=== PATIENT | female | born 1930 | race Caucasian/White ===

== ENCOUNTER 2017-06-21 15:55 | Inpatient (IN) | payer MEDICARE, OTHER ==
[~2017-06-21] VITALS: Ht 162.6 cm; Wt 73.5 kg
--- NOTE | ~2017-06-21 | CR107 ---
[facility] A Service of [facility] & [facility] RADIOLOGY TEXT RESULTS PATIENT: ALISE ROMAN LOCATION: [facility] 448-01 : 31 UNIT #: [id number] AGE: [address]: Annamaria Talbert MD SEX: F ORDER DR: [id number] [facility] [address] [place], [place] [address] [id number] I MR#: [id number] Acc #: [id number] NAME: ALISE ROMAN. : 1930 SEX: F STUDY DATE/TIME: 06/21/2017 17:31 UNIT: [facility] ROOM: [facility] STUDY DESCRIPTION: CR Femur 2 Views Rt Attending Physician: Kassie Enriquez M.D. Ordering Physician: Leonardo Escobedo M.D. Primary Care Physician: Hero Arnold M.D. MEDICAL IMAGING REPORT This report is preliminary unless electronic signature is present EXAM Right femur AP and lateral HISTORY Leg pain after fall today. FINDINGS AP and lateral views of the right femur demonstrate satisfactory bone alignment. No fracture or dislocation. Avhv-le-qhanrfco degenerative changes in the knee. Generalized demineralization. Arterial calcifications. IMPRESSION No acute findings. Dictated by... Rony Blackwood M.D. THIS IS AN ELECTRONICALLY VERIFIED REPORT Rony Blackwood M.D. at 06/22/2017 11:22 PM ELMA/bao TD: 06/21/2017 23:49 JOB #: [id number] MEDICAL IMAGING REPORT Page 1 of 1 COPY
--- NOTE | ~2017-06-21 | CR21 ---
[facility] A Service of [facility] & [facility] RADIOLOGY TEXT RESULTS PATIENT: ALISE ROMAN LOCATION: [facility] 448-01 : 31 UNIT #: [id number] AGE: [address]: Annamaria Talbert MD SEX: F ORDER DR: [id number] [facility] [address] [place], [place] [address] [id number] I MR#: [id number] Acc #: [id number] NAME: ALISE ROMAN. : 1930 SEX: F STUDY DATE/TIME: 06/21/2017 17:09 UNIT: [facility] ROOM: [facility] STUDY DESCRIPTION: CR Ankle Min 3 Views Rt Attending Physician: Kassie Enriquez M.D. Ordering Physician: Leonardo Escobedo M.D. Primary Care Physician: Hero Arnold M.D. MEDICAL IMAGING REPORT This report is preliminary unless electronic signature is present EXAM Right ankle, 3 views. HISTORY Ankle pain after fall today. FINDINGS Three views of the right ankle demonstrate oblique fracture of the distal fibular shaft approximately 4 cm proximal to the tip of the lateral malleolus with 4 mm separation of the fracture fragments and no significant fracture angulation. There is a transverse fracture through the base of the medial malleolus with 4 mm separation of the fracture fragment. Soft tissue swelling about the ankle, greater over the lateral malleolus. Generalized demineralization. No dislocation. Small posterior calcaneal spur. Dictated by... Rony Blackwood M.D. THIS IS AN ELECTRONICALLY VERIFIED REPORT Rony Blackwood M.D. at 06/22/2017 11:22 PM ELMA/lg TD: 06/22/2017 00:27 JOB #: [id number] MEDICAL IMAGING REPORT Page 1 of 1 COPY
--- NOTE | ~2017-06-21 | CR253 ---
[facility] A Service of [facility] & [facility] & [facility] RADIOLOGY TEXT RESULTS PATIENT: ALISE ROMAN LOCATION: [facility] 448-01 : 31 UNIT #: [id number] AGE: [address]: Annamaria Talbert MD SEX: F ORDER DR: [id number] [facility] [address] [place], [place] [address] [id number] MR#: [id number] Acc #: [id number] NAME: ALISE ROMAN. : 1930 SEX: F STUDY DATE/TIME: 06/21/2017 17:19 UNIT: [facility] ROOM: [facility] STUDY DESCRIPTION: CR Tibia and Fibula 2 Views Rt Attending Physician: Kassie Enriquez M.D. Ordering Physician: Leonardo Escobedo M.D. Primary Care Physician: Hero Arnold M.D. MEDICAL IMAGING REPORT This report is preliminary unless electronic signature is present EXAM Right tibia-fibula AP and lateral HISTORY Leg pain after fall today. FINDINGS AP and lateral views of the right tibia and fibula demonstrate oblique fracture through the posterior malleolus with 3 mm separation of the fracture fragment. Transverse fracture through the base of the medial malleolus with 4 mm separation of the fracture fragment. There is also an oblique fracture through the distal fibular shaft centered approximately 4 cm from the tip the lateral malleolus with nearly 3-4 mm separation of the fracture fragments and no significant fracture angulation. Soft tissue swelling about the ankle. Generalized demineralization. No additional fracture. Dictated by... Rony Blackwood M.D. THIS IS AN ELECTRONICALLY VERIFIED REPORT Rony Blackwood M.D. at 06/22/2017 11:22 PM ELMA/bao TD: 06/22/2017 00:32 JOB #: [id number] MEDICAL IMAGING REPORT Page 1 of 1 COPY
--- NOTE | ~2017-06-21 | EKG ---
PATIENT: ALISE ROMAN UNIT #: [id number] Ventricular Rate: 81 BPM Atrial Rate: 82 BPM QRS Duration: 78 ms Q-T Interval: 422 ms QTC Calculation(Bezet): 490 ms Calculated R Modena: 0 degrees Calculated T Modena: 48 degrees Diagnosis Line: Normal sinus rhythm Diagnosis Line: Minimal voltage criteria for LVH, may be normal Diagnosis Line: variant Diagnosis Line: Prolonged QT Diagnosis Line: Abnormal ECG Diagnosis Line: When compared with ECG of 03-JUN-2016 18:47, Diagnosis Line: ST depression in in lateral leads is new Diagnosis Line: Confirmed by KARLA KUMAR MD ([id number]) on 06/22/2017 Diagnosis Line: 6:48:48 PM INTERPRETING MD: STACY TREVIZO
--- NOTE | ~2017-06-21 | DS ---
Unit #: [id number] #: [id number] Patient: ALISE ROMAN [id number] [address] [address] [id number] I MR#: [id number] NAME: ALISE ROMAN. ROOM: 448 Age: Sex: F Admission Date: 06/21/2017 : 1930 Discharge Date: 06/24/2017 Attending Physician: Annamaria Talbert M.D. Primary Care Physician: Hero Arnold M.D. DISCHARGE SUMMARY DISCHARGE DIAGNOSES 1. Fall with right trimalleolar fracture, nondisplaced, status post right nonweightbearing short leg fiberglass cast. 2. Coronary artery disease with stable angina. 3. Diabetes mellitus type 2, uncontrolled. 4. Hypertension. 5. History of asthma. 6. History of previous stroke with minimal residual. 7. Hyperlipidemia. 8. Mild to moderate (1) regurgitation. 9. Hypertensive crisis on admission. CONSULTANTS Dr. Mane and Dr. Little. PROCEDURE Patient had obligation of the right nonweightbearing short leg fiberglass cast on 06/22/2018. LABORATORY DATA Glucose 486, creatinine 0.5. WBC 9.3, hemoglobin 12.2, platelet 168. ALLERGIES Sulfa, amylase, lipase, protease, alprazolam, cimetidine, isradipine. DISCHARGE MEDICATIONS 1. Albuterol two puffs inhalation 4 times daily. 2. Prednisone 2.5 p.o. b.i.d. 3. Cymbalta 60 p.o. daily. 4. Vistaril 50 p.o. b.i.d. 5. Lopressor 25 p.o. b.i.d. 6. Bisacodyl 10 mg p.r.n. constipation. 7. MiraLAX 17 g p.o. daily. 8. Lipitor 40 daily. 9. Lisinopril 20 daily. 10. Aspirin 81 daily. 11. Percocet 5 mg 1-2 tablets q.4 p.r.n. pain. 12. Plavix 75 daily. 13. Amaryl 4 mg daily. 14. Calcium carbonate 500 p.o. daily p.r.n. HOSPITAL COURSE 86-year-old lady admitted because of fall and trimalleolar fracture. Follow the trimalleolar fracture. Patient was seen by orthopedics. Unit #: [id number] #: [id number] Patient: ALISE ROMAN Patient had application of a right nonweightbearing short leg fiberglass cast, currently tolerating this. Patient will be discharged to rehab. Diabetes mellitus type 2, well controlled, noninsulin dependent. Continue the Amaryl. Hypertension with crisis on admission. Adjusted medicines. Currently blood pressure is stable. Continue current medication. Coronary artery disease. Continue with Plavix. Patient is seen by cardiology. She has stable angina. Patient will be discharge to rehab. Continue with the weightbearing status as per Dr. Mane. Dictated by... Rhea Gay/vikas TD: 06/24/2017 15:49 JOB #: [id number] DISCHARGE SUMMARY Page 1 of 1 X Annamaria Talbert MD X DISCHARGE SUMMARY
--- NOTE | ~2017-06-21 | HP ---
Unit #: [id number] #: [id number] Patient: ALISE ROMAN [id number] [address] [place], [place] [address] [id number] I MR#: [id number] NAME: ALISE ROMAN. ROOM: 29837 Age: 86 Sex: F Admission Date: 06/21/2017 : 1930 Attending Physician: Kassie Enriquez M.D. Primary Care Physician: Hero Arnold M.D. HISTORY AND PHYSICAL CHIEF COMPLAINT Fall with right trimalleolar fracture. HISTORY OF PRESENT ILLNESS This pleasant 86-year-old female with CAD, hypertension, and AODM, is admitted for an ankle fracture. Today, the patient slipped in her bathroom and fell with right leg pain. She was able to scoot to the phone and call family. She was sent to this emergency department with an initial blood pressure of 200/100 which has improved after pain medicines. Multiple x-rays were performed, and patient was found to have a right trimalleolar ankle fracture. She lives alone and would not be able to care for herself waiting for an orthopedic surgical evaluation as an outpatient. She therefore is admitted and will likely need surgery. Patient does have heart disease followed by Dr. Little. She has undergone multivessel PCI and stents with an ejection fraction of about 45%. During her last cardiac catheterization in 2013, she was noted to have 90% stent stenosis mid LAD caught in stent fdc. The family at that time did not want further intervention. Patient denies recent angina. She is however, quite sedentary. PAST MEDICAL HISTORY 1. Coronary artery disease with previous MIs. Last ejection fraction 45%. Status post multivessel PCI and stents. 2. Essential hypertension. 3. Hyperlipidemia. 4. Adult-onset diabetes mellitus. 5. Asthma. 6. Fibromyalgia. 7. Degenerative joint disease. 8. Esophagitis with esophageal stricture requiring dilation. 9. Anxiety. 10. Cholecystectomy. 11. ERCP. 12. Bilateral cataract extraction. 13. Right wrist surgery. ALLERGIES Sulfa, Xanax, Tagamet, isradipine, and Pancreas. HOME MEDICATIONS 1. Aspirin 81 mg daily. Unit #: [id number] #: [id number] Patient: ALISE ROMAN 2. Prednisone 2.5 mg b.i.d. 3. Amaryl 2 mg q.a.m. 4. Plavix 75 mg q.a.m. 5. Metoprolol 25 mg b.i.d. 6. Lisinopril 20 mg at bedtime. 7. Hydrocodone 10/325 at 5 tablets daily as needed. 8. Atarax 50 mg b.i.d. 9. Cymbalta 60 mg daily. 10. Lipitor 40 mg at bedtime. 11. Nitroglycerin p.r.n. 12. ProAir q.i.d. 13. Refresh eyedrops 1 drop O.U. at bedtime. FAMILY HISTORY Noncontributory given patient's age. SOCIAL HISTORY Patient lives alone. She is a lifelong nonsmoker and does not drink alcohol. REVIEW OF SYSTEMS Notable for heart disease, asthma, hypertension, fall, right ankle fracture, diabetes, above-mentioned surgeries, and chronic left knee pain. All other systems were reviewed and otherwise negative. PHYSICAL EXAMINATION: GENERAL: A pleasant 86-year-old, mildly obese female currently in no acute distress. VITAL SIGNS: Temperature 98.5, pulse 64, respirations 16, blood pressure 200/100 which has improved to a blood pressure of 124/62, and O2 saturation is 93% on room air. HEENT: Eyes PERRLA. Extraocular muscles are intact. Pharynx is benign. NECK: Supple without adenopathy or thyromegaly. CHEST: Clear. CARDIAC: Normal S1 and S2 without S3, S4, or murmur. ABDOMEN: Bowel sounds are present. No hepatosplenomegaly, tenderness, or masses. EXTREMITIES: Patient has a splint and Tulio wrap right lower extremity. Left leg without edema, good pedal pulse, and no ulcer on the foot. NEUROLOGIC: Patient is awake, alert, and oriented. Cranial nerves are intact. Equal strength throughout. DIAGNOSTIC STUDIES ADMISSION LABORATORY: Hematocrit is 40.3 with normal white count and platelet count. SMA-12 with glucose of 179. IMAGING: X-rays of the LS spine, right femur, and right hip show no acute disease. X-ray of the right ankle and foot show a trimalleolar right ankle fracture. Head CT I believe shows stable findings and small vessel ischemia disease but will await formal dictation as it is difficult for me to completely understand what the radiologist is dictating. However, it is of note, there was no hemorrhage noted. ASSESSMENT 1. Fall with right trimalleolar fracture. 2. Coronary artery disease with mild left ventricular dysfunction. 3. Adult-onset diabetes mellitus. 4. Essential hypertension. Unit #: [id number] #: [id number] Patient: ALISE ROMAN 5. Stable asthma. PLANS 1. Obtain EKG, urinalysis, and chest x-ray. 2. Hold Amaryl, treat with sliding scale insulin, and add dextrose to IV fluids while n.p.o. 3. Continue Lopressor even if n.p.o. 4. Orthopedic surgeon has been consulted. 5. Pain control. 6. Cardiology to also help clear in the morning. 7. Hold aspirin and Plavix for upcoming possible surgery. 1. Dictated by Kassie Enriquez M.D. AML/am TD: 06/21/2017 21:53 JOB #: [id number] HISTORY AND PHYSICAL Page 1 of 1 X Kassie Enriquez MD X HISTORY AND PHYSICAL
--- NOTE | ~2017-06-21 | CO ---
Unit #: [id number] #: [id number] Patient: ALISE ROMAN [id number] [address] [place], [place] [address] [id number] I MR#: [id number] NAME: ALISE ROMAN. ROOM: 448 Age: 86 Sex: F Admission Date: 06/21/2017 : 1930 Attending Physician: Annamaria Talbert M.D. Primary Care Physician: Hero Arnold M.D. Consultation Date: 06/22/2017 CONSULTATION REPORT REASON FOR CONSULT Right trimalleolar ankle fracture. HISTORY OF PRESENT ILLNESS This is an 86-year-old female, who reported to the emergency department for closed right trimalleolar ankle fracture. The patient was at home when she slipped in the bathroom rolling her ankle. The patient was unable to bear weight directly after the patient was at home alone, she states no other injuries occurred. She reported to the emergency department with a blood pressure of 200/100, which has improved after pain medication. She is on chronic pain medication for previous back injury. The patient does have heart disease, followed by Dr. Little. She has undergone multivessel PCI and stents with ejection fraction of 45%. Last cardiac catheterization was in 2013. She does not live with any family and was at home alone. The patient denies any recent chest pain, shortness of air. No other orthopedic complaints at this time. PAST MEDICAL HISTORY 1. Coronary artery disease. 2. Essential hypertension. 3. Hyperlipidemia. 4. Adult onset diabetes mellitus. 5. Asthma. 6. Fibromyalgia. 7. Degenerative joint disease. 8. Anxiety. 9. Esophagitis. 10. Cholecystectomy. 11. ERCP. 12. Bilateral cataract extraction. 13. History of right wrist surgery. ALLERGIES Sulfa, Xanax, Tagamet, isradipine. MEDICATIONS Aspirin 81 mg, prednisone 2.5 mg b.i.d., Amaryl 2 mg q.a.m., Plavix 75 mg, lisinopril 20 mg, hydrocodone 10/325, Atarax 50 mg, Cymbalta 60 mg, Lipitor 40 mg, nitroglycerin p.r.n., ProAir q.i.d., Refresh eyedrops one drop at bedtime. FAMILY HISTORY Noncontributory. Unit #: [id number] #: [id number] Patient: ALISE ROMAN SOCIAL HISTORY The patient lives alone. Denies any tobacco or alcohol use. REVIEW OF SYSTEMS Notable for heart disease, asthma hypertension, fall, right ankle fracture, diabetes, above-mentioned surgeries, and chronic left knee pain and back pain. PHYSICAL EXAMINATION GENERAL: Pleasant 86-year-old female, mildly obese, no acute distress. VITAL SIGNS: Afebrile. Vital signs stable. HEENT: Eyes, PERRLA. NECK: Supple. No adenopathy or thyromegaly. CHEST: Clear. Regular rate and rhythm. CARDIAC: Normal S1, S2. ABDOMEN: Soft, nontender, nondistended. EXTREMITIES: Bilateral pedal pulses intact. Sensation intact to light touch in all distal digits. Diffuse edema to the distal tibia, ankle, and forefoot. Ecchymosis to the lateral ankle. Tenderness to palpation over the anterior ankle and medial and lateral distal tibia. The patient is unable to perform range of motion of the ankle joint. The patient is able to wiggle toes. Brisk cap refill intact to all digits right foot. DIAGNOSTIC STUDIES IMAGING STUDIES: Three view x-rays right ankle show a nondisplaced trimalleolar fracture, transverse medial malleolus fracture, oblique fracture of the fibula above the syndesmosis nondisplaced. No posterior malleolar component. ASSESSMENT An 86-year-old female with trimalleolar fracture right ankle, nondisplaced, closed. PLAN The patient will be removed from posterior splint and placed into a short-leg cast. The patient to remain nonweightbearing right lower extremity. The patient will require rehab placement for approximately 6 weeks. The patient will follow up with Dr. Mane in 1 week for removal of the cast and re-evaluation of right ankle three view x-rays. The patient okay to continue aspirin and Plavix. Pain medication, Percocet 5/325 p.o. q.4 to 6 hours p.r.n. pain. Dictated byLinda Mane M.D. JANET/octavio TD: 06/22/2017 18:58 JOB #: [id number] Unit #: [id number] #: [id number] Patient: ALISE ROMAN CONSULTATION REPORT Page 1 of 1 X Jaqueline Mane MD CONSULTATION REPORT
--- NOTE | ~2017-06-21 | CR127 ---
[facility] A Service of [facility] & [facility] RADIOLOGY TEXT RESULTS PATIENT: ALISE ROMAN LOCATION: [facility] 448-01 : 31 UNIT #: [id number] AGE: [address]: Annamaria Talbert MD SEX: F ORDER DR: [id number] [facility] [address] [place], [place] [address] [id number] I MR#: [id number] Acc #: [id number] NAME: ALISE ROMAN. : 1930 SEX: F STUDY DATE/TIME: 06/21/2017 17:11 UNIT: [facility] ROOM: [facility] STUDY DESCRIPTION: CR Foot Complete Min 3 View Rt Attending Physician: Kassie Enriquez M.D. Ordering Physician: Leonardo Escobedo M.D. Primary Care Physician: Hero Arnold M.D. MEDICAL IMAGING REPORT This report is preliminary unless electronic signature is present EXAM Right foot, 3 views. HISTORY Foot pain after fall today. FINDINGS Three views of the right foot demonstrate satisfactory bone alignment. No foot fracture. Generalized demineralization. Mild degenerative changes at the first MTP joint. Small posterior calcaneal spur. Transverse fracture through the base of the medial malleolus and oblique fracture the distal fibular shaft correspond to findings on ankle x-ray reported separately. IMPRESSION 1. No foot fracture. 2. Transverse fracture through the base of the medial malleolus and oblique fracture of the distal fibular shaft correspond to findings on ankle x-ray reported separately. Dictated by... Rony Blackwood M.D. THIS IS AN ELECTRONICALLY VERIFIED REPORT Rony Blackwood M.D. at 06/22/2017 11:22 PM ELMA/lg TD: 06/22/2017 00:29 JOB #: [id number] MEDICAL IMAGING REPORT Page 1 of 1 COPY
--- NOTE | ~2017-06-21 | CR181 ---
[facility] A Service of [facility] & [facility] RADIOLOGY TEXT RESULTS PATIENT: ALISE ROMAN LOCATION: [facility] 448-01 : 31 UNIT #: [id number] AGE: [address]: Annamaria Talbert MD SEX: F ORDER DR: [id number] [facility] [address] [place], [place] [address] [id number] I MR#: [id number] Acc #: [id number] NAME: ALISE ROMAN. : 1930 SEX: F STUDY DATE/TIME: 06/21/2017 17:40 UNIT: [facility] ROOM: [facility] STUDY DESCRIPTION: CR Lumbar Spine 2 or 3 Views Attending Physician: Kassie Enriquez M.D. Ordering Physician: Ed Alec Escobedo M.D. Primary Care Physician: Hero Arnold M.D. MEDICAL IMAGING REPORT This report is preliminary unless electronic signature is present EXAM Lumbar spine 3 views HISTORY Back pain after fall today. FINDINGS 3 views lumbar spine demonstrate minimal left upper lumbar curve. Five lumbar-type vertebra. No fracture or subluxation. No abnormal sclerosis. Cqii-cp-bxrrtmqc degenerative changes primarily in the lower lumbar facet joints. IMPRESSION No acute findings. Dictated by... Rony Blackwood M.D. THIS IS AN ELECTRONICALLY VERIFIED REPORT Rony Blackwood M.D. at 06/22/2017 11:22 PM ELMA/bao TD: 06/21/2017 23:50 JOB #: [id number] MEDICAL IMAGING REPORT Page 1 of 1 COPY
--- NOTE | ~2017-06-21 | CO ---
Unit #: [id number] #: [id number] Patient: ALISE ROMAN [id number] [address] [place], [place] [address] [id number] I MR#: [id number] NAME: ALISE ROMAN. ROOM: 448 Age: 86 Sex: F Admission Date: 06/21/2017 : 1930 Attending Physician: Annamaria Talbert M.D. Primary Care Physician: Hero Arnold M.D. Consultation Date: 06/21/2017 CONSULTATION REPORT REASON FOR CONSULTATION Cardiac management, status post fall with a right trimalleolar fracture. HISTORY OF PRESENT ILLNESS This is an 86-year-old white female who is known to Dr. Little, who sees Dr. Little in the office. She was last seen this past May. She has a history of having previous myocardial infarction. Last catheterization in 2013. The patient had a PCI and stent to the mid LAD times two. She is maintained on Plavix and aspirin. She has hypertension, hyperlipidemia, previous stroke with minimal residual, chronic obstructive pulmonary disease, asthma and diabetic. The patient, as mentioned, was brought to the emergency room after she experienced a fall. According to the patient, she went to the bathroom and does use a walker, but there was water on the floor and she slipped and fell. She twisted her right ankle. She lives alone. She laid on the floor for some amount of time and eventually could crawl into the next room and called her daughter. They called EMS and she was brought to the emergency room. She complained of pain in her right ankle on the right side of her leg. Multiple x-rays were performed and the patient was found to have a right trimalleolar ankle fracture. X-rays of her lumbar spine, right hip and CT of the head were stable. The patient's blood pressure was fairly high on admission, 200/100. She was afebrile. Chest x-ray did not show anything acute. The patient was admitted and orthopedic surgeon consulted. Cardiology was consulted since she has a stent and is on Plavix and aspirin for possible clearance for any needed surgical intervention. On interview with the patient she denies any chest pain, pain in her neck, bilateral jaws, shoulders, arms or elbows. She denies any palpitations. She denied any dizziness, presyncope or syncope that could have precipitated this fall. She said she had been doing fairly well since she saw Dr. Little last. PAST MEDICAL HISTORY 1. Coronary artery disease. 2. Previous myocardial infarction in 2012. Status post PCI and bare metal stent to the mid LAD and drug-eluting stent to the PLV branch of the RCA. 3. Last cardiac catheterization was in 2013, status post PCI and stent to the mid LAD times two. The findings were 30% distal left main stenosis, LAD large caliber with intracoronary stent widely patent, in the mid LAD the was a 90% stenosis at the origin of the diagonal branch caught in stent senior care, mid LAD in the first diagonal branch with patent stents, circumflex very small and a nondominant vessel with a small marginal branch 80%-90% stenosis at its origin, RCA widely patent stent in the posterolateral ventricular branch. 4. In 2013 two-dimensional echo with left ventricular ejection fraction Unit #: [id number] #: [id number] Patient: ALISE ROMAN M of 50%, mild left ventricular hypertrophy, mild mitral regurgitation, mild to moderate aortic regurgitation. 5. Hypertension. 6. Hyperlipidemia. 7. Previous stroke. 8. Chronic obstructive pulmonary disease, asthma. 9. Diabetes mellitus type 2. 10. Nonsmoker. PAST SURGICAL HISTORY 1. Status post PCI and bare metal stent to the mid LAD and drug-eluting stent to the PLV branch of the RCA in 2012. 2. In 2013, status post PCI and stent to the mid LAD times 2. 3. Cholecystectomy. 4. Right wrist surgery. 5. Bilateral cataract surgery. 6. ERCP. SOCIAL HISTORY The patient lives in her own home alone. She does have family that lives nearby. She has been a lifelong nonsmoker. No alcohol or illicit drug use. She ambulates with a walker and has a cane. FAMILY HISTORY Her brother had a myocardial infarction at the age of 70. ALLERGIES Sulfonamides, alprazolam, cimetidine, Isradipine. HOME MEDICATIONS 1. Amaryl 2 mg p.o. daily in the morning. 2. Aspirin 81 mg p.o. daily. 3. Metoprolol 25 mg b.i.d. 4. Plavix 75 mg p.o. daily. 5. Lisinopril 20 mg p.o. daily at bedtime. 6. Hydroxyzine Vistaril 50 mg p.o. b.i.d. 7. Cymbalta 60 mg p.o. daily. 8. Lipitor 40 mg p.o. at bedtime. 9. Gaviscon Extra Strength one tablet p.r.n. 10. Hydrocodone acetaminophen 10/325 mg 1 tablet q.4 h. p.r.n. pain. 11. Prednisone 2.5 mg p.o. b.i.d. 12. ProAir 2 puffs q.i.d. REVIEW OF SYSTEMS See details in history of present illness. PHYSICAL EXAMINATION GENERAL: Ms. Roman is an 86-year-old white female in no acute respiratory distress. She is awake, alert and oriented. She answers most questions appropriately. VITALS: Currently, blood pressure 149/50, heart rate 74, respiratory rate 18, temperature 98.1, O2 saturations 98% on room air. NECK: Trachea midline. No thyromegaly or lymphadenopathy. Normal carotid upstrokes. No jugular venous distension. LUNGS: Diminished, otherwise clear. HEART: S1 and S2. Systolic murmur over the aortic region, left sternal border. ABDOMEN: Soft and nontender. Positive bowel sounds present. Unit #: [id number] #: [id number] Patient: ALISE ROMAN EXTREMITIES: Left foot pedal pulses are palpable. No pedal edema. On the right she has a cast with the toes exposed. They are warm to touch. Good capillary refill. DIAGNOSTIC STUDIES IMAGING: Chest x-ray shows no active disease. X-ray of the lumbar spine nothing acute. X-ray of the right femur negative. X-ray of right hip negative. X-ray of the tibia/fibula negative. X-ray of the right foot shows a transverse fracture through the base of the medial malleolus and oblique fracture of the distal fibular shaft. X-ray of the right ankle, three views, show oblique fracture of the distal fibula to the tip of the lateral malleolus. Also transverse fracture to the base of the medial malleolus. LABORATORY: Glucose 219, BUN 26, creatinine 0.6, EGFR 83.1, sodium 137, potassium 4.3, chloride 102, CO2 27, calcium 8.7, total protein 6.3, albumin 4.1, bilirubin total 1.0, AST 24, ALT 30, alkaline phosphatase 85. White blood cell count 8.4, hemoglobin 13.2, hematocrit 37.8 and platelets 192. INR 1.0. Urinalysis is 100+ glucose, 0.2 urobilinogen, otherwise unremarkable. CARDIOVASCULAR: EKG shows normal sinus rhythm with ventricular rate 81 beats per minute, left ventricular hypertrophy, low voltage in V2, probable Q wave in V1 and also in lead 3, poor R wave progression and slightly prolonged QT. ASSESSMENT 1. Status post fall. Right closed, nondisplaced trimalleolar ankle fracture. 2. History of coronary artery disease. Previous PCI and stent. See details in history of present illness. 3. Hypertension. 4. Hyperlipidemia. 5. Previous stroke, minimal residual. 6. Asthma/chronic obstructive pulmonary disease. 7. Diabetes mellitus type 2. 8. Left ventricular ejection fraction 60%, mild to moderate aortic regurgitation. PLAN 1. Cardiology consulted to assist in the evaluation and management and to clear the patient if she needs any surgical intervention for her ankle fracture. 2. On exam there are no signs or symptoms of unstable angina or acute congestive heart failure. Continue the patient on her beta bridger and her lisinopril with parameters for blood pressure. Right now holding her Plavix and aspirin until they made a decision if they are going to do surgery on her ankle. Dr. Little examined and reviewed the patient's records. He feels there is no contraindication for surgery if she it from a cardiac standpoint. She is a low to Unit #: [id number] #: [id number] Patient: ALISE ROMAN moderate modifiable risk. Continue on all other cardiac medications. As soon as surgery makes the decision and if she has surgery, they will decide when to start back on Plavix and aspirin. If they do not need surgery, will resume the Plavix and aspirin. 3. The patient's blood pressure is better controlled now on the metoprolol and lisinopril. Thank you very much for allowing us to participate in her care. Further recommendations pending Dr. Little. Dictated by... Natividad Jordan A.P.R.N. for Rhea Jorgensen TD: 06/23/2017 11:11 JOB #: [id number] CC: Hero Arnold M.D. [facility] CONSULTATION REPORT Page 1 of 1 X Natividad Jordan APRN CONSULTATION REPORT
--- NOTE | ~2017-06-21 | CR151 ---
[facility] A Service of [facility] RADIOLOGY TEXT RESULTS PATIENT: ALISE ROMAN LOCATION: [facility] 448-01 : [birth year] UNIT #: [id number] AGE: [address]: Annamaria Talbert MD SEX: F ORDER DR: [id number] [facility] [address] [place], [place] [address] [id number] I MR#: [id number] Acc #: [id number] NAME: ALISE ROMAN. : 1930 SEX: F STUDY DATE/TIME: 06/21/2017 17:23 UNIT: [facility] ROOM: [facility] STUDY DESCRIPTION: CR Hip Min 2 Views Rt Attending Physician: Kassie Enriquez M.D. Ordering Physician: [facility] Primary Care Physician: Hero Arnold M.D. MEDICAL IMAGING REPORT This report is preliminary unless electronic signature is present EXAM Right hip 2 views HISTORY Right hip pain and bruising after fall today. FINDINGS 2 views of the right hip demonstrate satisfactory hip alignment. No fracture, joint space narrowing or dislocation. Mild demineralization. IMPRESSION No acute findings. Dictated by... Rony Blackwood M.D. THIS IS AN ELECTRONICALLY VERIFIED REPORT Rony Blackwood M.D. at 06/22/2017 11:22 PM DFL/pcl TD: 06/21/2017 23:35 JOB #: [id number] MEDICAL IMAGING REPORT Page 1 of 1 COPY
--- NOTE | ~2017-06-21 | OR ---
Unit #: [id number] #: [id number] Patient: ALISE ROMAN [id number] [address] [address] [id number] I MR#: [id number] NAME: ALISE ROMAN. ROOM: [facility] Date of Procedure: 06/22/2017 Admission Date: 06/21/2017 Surgeon: Gloria Mane M.D. : 1930 Attending Physician: Annamaria Talbert M.D. Primary Care Physician: Hero Arnold M.D. OPERATIVE REPORT PREOPERATIVE DIAGNOSIS Nondisplaced right trimalleolar ankle fracture. POSTOPERATIVE DIAGNOSIS Nondisplaced right trimalleolar ankle fracture. PROCEDURE PERFORMED Application right nonweightbearing short leg fiberglass cast. ANESTHESIA None. ASSISTANTS [place] [employer] [place]. INDICATIONS FOR PROCEDURE This 86-year-old female fell last night injuring her right ankle. Radiographs show a nondisplaced trimalleolar fracture. Due to the patient's age and nondisplaced nature of the fracture, she is to undergo cast immobilization. DESCRIPTION OF PROCEDURE With the patient lying supine in bed, a stockinette was applied and cast padding was applied to pad all bony prominences. Four rolls of 3-inch fiberglass cast were then placed and the cast was molded appropriately. The patient had extremely poor pain control and the ankle was left in about 10 degrees of ankle equinus. There were no complications. PLAN The patient will have radiographs of the right ankle in 2 weeks with the cast in place to determine that no displacement of the fracture has occurred. If the fracture displacement does occur, then she may require open reduction and internal fixation. Dictated by... Gloria Mane M.D. RTCholo/carlos enriquel TD: 06/22/2017 19:04 Unit #: [id number] #: [id number] Patient: ALISE ROMAN JOB #: [id number] OPERATIVE REPORT Page 1 of 1 X Jaqueline Mane MD X PROCEDURE OPERATIVE NOTE
--- NOTE | ~2017-06-21 | CT71 ---
[facility] A Service of [facility] & [facility] RADIOLOGY TEXT RESULTS PATIENT: ALISE ROMAN LOCATION: [place] [address]- : [birth year] UNIT #: [id number] AGE: [address]: Annamaria Talbert MD SEX: F ORDER DR: [id number] [facility] [address] [place], [place] [address] [id number] I MR#: [id number] Acc #: [id number] NAME: ALISE ROMAN. : 1930 SEX: F STUDY DATE/TIME: 06/21/2017 16:56 UNIT: [facility] ROOM: 350[address] STUDY DESCRIPTION: CT Head Wo Contrast Attending Physician: Kassie Enriquez M.D. Ordering Physician: Leonardo Escobedo M.D. Primary Care Physician: Hero Arnold M.D. MEDICAL IMAGING REPORT This report is preliminary unless electronic signature is present EXAM CT head without contrast, 06/21/[address] head without contrast dated 10/04/2014. HISTORY Slipped on the bathroom floor and possibly hit head with head discomfort today. This CT exam was performed with one or more of the following radiation dose reduction techniques: automatic exposure control, adjustment of mA and/or kV according to patient size, and iterative reconstruction. FINDINGS CT of the head was obtained without contrast in the axial plane as per the protocol. Patchy multiple hypodensities are noted in the periventricular and subcortical white matter, particularly in bifrontal lobes. No acute intracranial hemorrhage, hydrocephalus or midline shift. No obvious fracture or significant focal scalp hematoma/swelling. Air fluid level is noted within the right maxillary antrum. The other paranasal sinuses and mastoid air cells are well-aerated. IMPRESSION Patchy hypodensities are noted in the brain predominately involving the supratentorial white matter of bifrontal lobes and biparietal white matter superiorly. These appear to be relatively stable when compared to the prior study from 3 years ago to mildly worse. It is likely related to moderate to severe chronic microvascular ischemic change based on age and statistics. Superimposed acute lacunar infarct cannot be excluded based on the current images, in the appropriate clinical setting. There is however no acute intracranial hemorrhage, hydrocephalus, midline shift, STS. [facility] A Service of [facility] RADIOLOGY TEXT RESULTS PATIENT: ALISE ROMAN LOCATION: [place] [address]- : [birth year] UNIT #: [id number] AGE: [address]: Annamaria Talbert MD SEX: F ORDER DR: fracture or focal scalp soft tissue swelling/hematoma. Dictated by... Prashant Reno M.D. THIS IS AN ELECTRONICALLY VERIFIED REPORT Prashant Reno M.D. at 06/22/2017 5:30 PM CPR/ljd TD: 06/21/2017 22:45 JOB #: [id number] MEDICAL IMAGING REPORT Page 1 of 1 COPY
--- NOTE | ~2017-06-21 | CR72 ---
[facility] A Service of [facility] & [facility] RADIOLOGY TEXT RESULTS PATIENT: ALISE ROMAN LOCATION: [facility] 448-01 : [birth year] UNIT #: [id number] AGE: [address]: Annamaria Talbert MD SEX: F ORDER DR: [id number] [facility] [address] [place], [place] [address] [id number] I MR#: [id number] Acc #: [id number] NAME: ALISE ROMAN. : 1930 SEX: F STUDY DATE/TIME: 06/21/2017 21:46 UNIT: [facility] ROOM: [facility] STUDY DESCRIPTION: CR Chest Single View Portable Attending Physician: Kassie Enriquez M.D. Ordering Physician: Kassie Enriquez M.D. Primary Care Physician: Hero Arnold M.D. MEDICAL IMAGING REPORT This report is preliminary unless electronic signature is present EXAM Portable chest HISTORY Shortness of air today. Preop ankle surgery. Fracture today after fall. FINDINGS The cardiac size and pulmonary vascularity are normal. No airspace infiltrates or effusions. Small calcified granuloma lateral left midlung. Surgical clips in the right upper quadrant. IMPRESSION No acute findings and no active disease. Dictated by... Rony Blackwood M.D. THIS IS AN ELECTRONICALLY VERIFIED REPORT Rony Blackwood M.D. at 06/22/2017 11:26 PM ELMA/bao TD: 06/22/2017 04:54 JOB #: [id number] MEDICAL IMAGING REPORT Page 1 of 1 COPY
[~2017-06-21 15:55] MED LIST: ALBUTEROL MININEB NEB; ALBUTEROL17 GM; AMARYL1 MG PO; AMARYL2 MG PO; AMOXICILLIN PO; ASPIRIN EC81 M1 PO; ASPIRIN81 MG PO; BRILINTA90 MG PO; BRIMONIDINE5 ML OD; CENTRUM SILVER PO; CIPRO PO; CLOPIDOGREL75 MG PO; CYMBALTA PO; DULOXETINE HCL60 MG PO; DUONEB 2.5-0.5 M3 ML NEB; ENTOCORT EC3 MG PO; GAS X PO; GAVISCON EXTRA PO; GAVISCON1 TAB PO; GLIMEPIRIDE2 MG PO; GLYBURIDE PO; HYDROCODON-ACE1 EAC4; HYDROCODON-ACE1 EAC4 PO; HYDROCODONE-APA1 T54 PO; HYDROXYZINE HCL50 MG PO; ISORDIL PO; JANUVIA PO; LIPITOR PO; LIPITOR20 MG PO; LIPITOR40 MG PO; LISINOPRIL20 MG PO; LORTAB 10-5001 EACH PO; LORTAB 7.5-5001 TAB; LYRICA75 MG PO; METOPROLOL TAR25 MG PO; NITROGLYGERIN0.4 MG SL; NORVASC PO; ONGLYZA5 MG PO; PLAVIX PO; PREDNISONE PO; PREDNISONE10 MG PO; PREDNISONE5 M1 PO; PRILOSEC20 MG PO; PRO AIR INH; PROAIR HFA8.5 GM IH; PROTONIX PO; REFRESH5 ML OP; TRADJENTA5 MG PO; TYLENOL325 M1 PO; VISTARIL PO; VISTARIL50 MG PO; ZESTRIL5 MG PO; [UNRECOGNIZED DRUG - OTHER] PO; [UNRECOGNIZED DRUG - REMARK]
[2017-06-21 16:55] LABS: BASOPHIL% 0.2 % (0-2.5); EOSINOPHIL# 0.1 X10e3 (0-0.7); HEMATOCRIT 40.3 % (35.0-45.0); HEMOGLOBIN 13.8 gm/dL (12.0-16.0); LYMPHOCYTE# 0.8 X10e3 (1.0-3.5); MEAN CELL VOLUME 97.1 FL (83-96); MEAN CORPUSCULAR HEMOGLOBIN 33.3 PG (28-34); MEAN CORPUSCULAR HGB CONC 34.2 g/dL (30-36); MONOCYTE# 0.5 X10e3 (0-1.0); NEUTROPHIL# 7.3 X10e3 (1.5-7.1); NEUTROPHIL% 83.8 % (40-75); PLATELET COUNT 179 X10e3 (140-420); RED BLOOD COUNT 4.15 X10e (3.90-5.30); RED CELL DISTRIBUTION WIDTH 12.2 % (11.0-15.5); WHITE BLOOD COUNT 8.7 X10e3 (4.0-10.5)
[2017-06-21 16:57] LABS: DIFF IND NO
[2017-06-21 17:17] LABS: ALBUMIN SERUM 4.1 g/dL (3.5-5.0); BUN/CREATININE RATIO 32.85; CALCIUM SERUM 8.9 mg/dL (8.4-10.2); CREATININE SERUM 0.7 mg/dL (0.6-1.4); PROTEIN TOTAL SERUM 6.3 g/dL (6.0-8.3)
[2017-06-21] MEDS ORDERED: HYDROCODON-ACE1 EAC5 PO (22:31)
[2017-06-21] MEDS ORDERED: PREDNISONE2.5 MG PO (22:31)
[2017-06-21] MEDS ORDERED: PROAIR RESPICL90 MCG (22:42)
[2017-06-21 23:50] LABS: URINE SOURCE CATH
[2017-06-21 23:56] LABS: URINE APPEARANCE CLEAR; URINE BILIRUBIN NEG (NEG); URINE BLOOD NEG (NEG); URINE COLOR YELLOW; URINE GLUCOSE 100 MG/DL (NEG); URINE KETONE NEG (NEG); URINE LEUKOCYTE ESTERASE NEG (NEG); URINE NITRATE NEG (NEG); URINE PROTEIN NEG (NEG); URINE SPECIFIC GRAVITY 1.014 (1.003-1.035); URINE UROBILINOGEN 0.2 MG/DL (NEG)
[2017-06-22 00:11] LABS: CULTURE INDICATED? NO
[2017-06-22 03:59] LABS: BASOPHIL% 0.4 % (0-2.5); EOSINOPHIL# 0.1 X10e3 (0-0.7); EOSINOPHIL% 1.4 % (0.0-7.0); HEMATOCRIT 37.8 % (35.0-45.0); HEMOGLOBIN 13.2 gm/dL (12.0-16.0); LYMPHOCYTE# 0.9 X10e3 (1.0-3.5); LYMPHOCYTE% 11.3 % (17.0-45.0); MEAN CORPUSCULAR HEMOGLOBIN 33.9 PG (28-34); MEAN CORPUSCULAR HGB CONC 34.9 g/dL (30-36); MEAN PLATELET VOLUME 7.9 FL (6.5-11.5); MONOCYTE# 0.7 X10e3 (0-1.0); MONOCYTE% 7.9 % (3.0-12.0); NEUTROPHIL# 6.6 X10e3 (1.5-7.1); PLATELET COUNT 192 X10e3 (140-420); RED BLOOD COUNT 3.89 X10e (3.90-5.30); RED CELL DISTRIBUTION WIDTH 12.3 % (11.0-15.5); WHITE BLOOD COUNT 8.4 X10e3 (4.0-10.5)
[2017-06-22 04:05] LABS: DIFF IND NO
[2017-06-22 04:13] LABS: PARTIAL THROMBOPLASTIN TIME 25.9 SECONDS (23.5-31.3); PROTHROMBIN TIME (PATIENT) 11.1 SECONDS (10.0-11.7)
[2017-06-22 04:35] LABS: BUN/CREATININE RATIO 43.33; CALCIUM SERUM 8.7 mg/dL (8.4-10.2); CREATININE SERUM 0.6 mg/dL (0.6-1.4); GLOM FILT RATE Estimated 83.1 mL/min (>60); POTASSIUM 4.3 mmol/L (3.5-5.1)
[2017-06-23 03:58] LABS: HEMATOCRIT 35.5 % (35.0-45.0); HEMOGLOBIN 12.2 gm/dL (12.0-16.0); MEAN CORPUSCULAR HEMOGLOBIN 33.6 PG (28-34); MEAN CORPUSCULAR HGB CONC 34.3 g/dL (30-36); MEAN PLATELET VOLUME 7.9 FL (6.5-11.5); RED BLOOD COUNT 3.62 X10e (3.90-5.30); RED CELL DISTRIBUTION WIDTH 12.5 % (11.0-15.5); WHITE BLOOD COUNT 9.3 X10e3 (4.0-10.5)
[2017-06-23 04:33] LABS: CALCIUM SERUM 8.3 mg/dL (8.4-10.2); CREATININE SERUM 0.5 mg/dL (0.6-1.4); GLOM FILT RATE Estimated 88.3 mL/min (>60); POTASSIUM 4.9 mmol/L (3.5-5.1)
== END 2017-06-24 20:33 | DRG 563 ==
LOC: CED 15:55 → CFTX 15:55 → CED 19:17 → CEDOF 21:23 → C4B 23:12
PROVIDERS: Internal Medicine; Physician Assistant
PROC: 2W3QX2Z Immobilization of Right Lower Leg using Cast (ICD-10-PCS; principal; 2017-06-22)
DX: S82.854A Nondisplaced trimalleolar fracture of right lower leg, initial encounter for closed fracture (principal); E11.65 Type 2 diabetes mellitus with hyperglycemia; J44.9 Chronic obstructive pulmonary disease, unspecified; W01.0XXA Fall on same level from slipping, tripping and stumbling without subsequent striking against object, initial encounter; Y92.002 Bathroom of unspecified non-institutional (private) residence as the place of occurrence of the external cause; I10 Essential (primary) hypertension; E78.5 Hyperlipidemia, unspecified; J45.909 Unspecified asthma, uncomplicated; M79.7 Fibromyalgia; M19.90 Unspecified osteoarthritis, unspecified site; F41.9 Anxiety disorder, unspecified; Z90.49 Acquired absence of other specified parts of digestive tract; Z98.42 Cataract extraction status, left eye; Z98.41 Cataract extraction status, right eye; Z88.2 Allergy status to sulfonamides; I25.119 Atherosclerotic heart disease of native coronary artery with unspecified angina pectoris
CPT/HCPCS: 29515; 36415; 70450; 71010; 72100; 73502; 73552; 73590; 73610; 73630; 80048; 80053; 81003; 82947; 85025; 85027; 85610; 85730; 86850; 86900; 86901; 93005; 94640; 94664; 94760; 96374; 96375; 97110; 97161; 97530; 99285; G8978-GP; G8979-GP; J1170; J1815; J2270; J2405